=== PATIENT | female | born 1990 | race Hispanic/Latino ===

== ENCOUNTER → 2022-09-12 | Emergency (ER) | payer OTHER ==
[~2022-09-12] VITALS: Ht 152.4 cm; Wt 49.4 kg
[~2022-09-12] MED LIST: ACET-66 PO; CEFTRIAXONE 1G VIAL IM STA; CEPH500B PO; PHEN-847 PO; PHENAZOPYRIDINE HCL 200 MG TABLET PO STA; PREN-154 PO
[2022-09-12 23:13] LABS: BILIRUBIN,URINE NEGATIVE (NEGATIVE); GLUCOSE, URINE (UA) NEGATIVE (NEGATIVE); KETONES,URINE 5 mg/dL (NEGATIVE); LEUKOCYTE ESTERASE ,URINE MODERATE Leu/uL (NEGATIVE); NITRATE,URINE NEGATIVE (NEGATIVE); OCCULT BLOOD,URINE MODERATE (NEGATIVE); PROTEIN,URINE 30 mg/dL (NEGATIVE)
[2022-09-12 23:29] LABS: APPEARANCE,URINE TURBID (CLEAR); COLOR,URINE YELLOW (YELLOW)
[2022-09-12 23:37] LABS: BACTERIA,URINE Moderate /HPF (None Seen); SQUAMOUS EPITHELIAL CELL,UR Many /HPF (0-2)
[2022-09-12 23:38] LABS: WBC,URINE 26-50 /HPF (0-1)
[2022-09-13 03:25] VITALS: BP 118/79
== END | disposition home or self-care (01) ==
LOC: EDH 21:43
DX: R10.2 Pelvic and perineal pain (principal); R30.0 Dysuria; N39.0 Urinary tract infection, site not specified
CPT/HCPCS: 81001; 81025; 87077; 87088; 87186; 96372; J0696

== ENCOUNTER 2022-09-18 22:54 | Emergency (ER) | payer OTHER ==
[~2022-09-18] VITALS: Ht 152.4 cm; Wt 49.9 kg
[~2022-09-18 22:54] MED LIST changes: -ACET-66 PO; -CEFTRIAXONE 1G VIAL IM STA; -PHENAZOPYRIDINE HCL 200 MG TABLET PO STA; -PREN-154 PO
[2022-09-18 23:34] LABS: APPEARANCE,URINE CLEAR (CLEAR); BILIRUBIN,URINE NEGATIVE (NEGATIVE); COLOR,URINE LIGHT-YELLOW (YELLOW); GLUCOSE, URINE (UA) NEGATIVE (NEGATIVE); KETONES,URINE NEGATIVE (NEGATIVE); LEUKOCYTE ESTERASE ,URINE 75 Leu/uL (NEGATIVE); NITRATE,URINE NEGATIVE (NEGATIVE); OCCULT BLOOD,URINE NEGATIVE (NEGATIVE); PH,URINE 6.5 (5.0-8.0); PROTEIN,URINE NEGATIVE (NEGATIVE); UROBILINOGEN,URINE 0.2 mg/dL (0.2-1.0)
[2022-09-18 23:42] LABS: BASOPHILS % (AUTO) 0.3 % (0.0-5.0); EOSINOPHILS % (AUTO) 0.5 % (0.0-8.0); LYMPHOCYTES % (AUTO) 15.4 % (21.0-51.0); MEAN CORPUSCULAR HEMOGLOBIN 24.2 pg (27.0-33.0); MEAN CORPUSCULAR HGB CONC 30.9 g/dL (32.0-36.0); MEAN CORPUSCULAR VOLUME 78.2 fL (79-99); MONOCYTES % (AUTO) 4.7 % (3.0-13.0); NEUTROPHILS % (AUTO) 78.7 % (40.0-77.0); PLATELET COUNT (AUTO) 214 K/uL (130-400); RED BLOOD CELL COUNT(AUTO) 4.09 MIL/uL (4.00-5.50); WHITE BLOOD COUNT (AUTO) 7.6 K/uL (4.8-10.8)
[2022-09-18 23:46] LABS: MUCUS,URINE RARE LPF (None Seen); RBC,URINE 0-1 /HPF (0-1); SQUAMOUS EPITHELIAL CELL,UR RARE /HPF (0-2)
[2022-09-18 23:51] LABS: CREATININE 0.6 mg/dL (0.5-1.5); POTASSIUM 3.6 mmol/L (3.5-5.1)
[2022-09-18] MEDS ORDERED: ACET-66 PO (23:55)
[2022-09-18] MEDS ORDERED: PREN-154 PO (23:55)
[2022-09-19] MEDS ORDERED: ACETAMINOPHEN 500 MG TABLET PO ONE
[2022-09-19 00:02] LABS: ALBUMIN 3.8 g/dL (3.5-5.0); TOTAL PROTEIN, SERUM 7.3 g/dL (6.0-8.3)
[2022-09-19 00:18] VITALS: BP 110/72
== END 2022-09-19 00:28 | disposition home or self-care (01) ==
LOC: EDH 22:54
DX: O26.891 Other specified pregnancy related conditions, first trimester (principal); R10.30 Lower abdominal pain, unspecified; R51.9 Headache, unspecified
CPT/HCPCS: 36415; 80053; 81001; 81025; 84702; 85025; 87088